=== PATIENT | female | born 1940 | race Caucasian/White ===

== ENCOUNTER 2017-03-14 07:04 | Inpatient (IN) | payer MEDICARE, BC ==
--- NOTE | 2017-03-02 14:02 | HP ---
PREOPERATIVE HISTORY AND PHYSICAL: DATE OF OFFICE VISIT: 03/01/17 DATE OF SURGERY: 03/14/17 ATTENDING SURGEON: Kayli Leal MD * (DICTATED BY LYNNE VALDERRAMA) PROCEDURE: Left total knee replacement. CHIEF COMPLAINT: Left hip pain. HISTORY OF PRESENT ILLNESS: Dimitrios is a 76-year-old female who presents to the clinic for left knee pain due to severe endstage osteoarthritis. She has failed conservative measures and has therefore agreed to undergo left total knee replacement with Dr. Leal on 03/14/17. PAST MEDICAL HISTORY: Hypercholesterolemia, osteoarthritis, hypothyroidism, degenerative disk disease in her back, scoliosis, anxiety, and tobacco use. PAST SURGICAL HISTORY: Left knee arthroscopy, nephrolithiasis. Patient denies prior complications with anesthesia. MEDICATIONS: 1. Gemfibrozil 600 mg 1 by mouth daily. 2. Levothyroxine sodium 112 mcg 1 by mouth daily. 3. Sertraline HCl 100 mg 1 by mouth daily. 4. Atorvastatin calcium 20 mg 1 by mouth daily. 5. Gabapentin 300 mg 1 by mouth daily. ALLERGIES: DEMEROL and CECLOR. The patient also states that she has an unknown METAL allergy and reaction to JEWELRY. FAMILY HISTORY: Positive for diabetes, hypertension, and CVA. SOCIAL HISTORY: Patient lives with her . She is a current smoker, smokes about half a pack per day, she has for 50 years. She denies alcohol use. She is normally an independent ambulator. REVIEW OF SYSTEMS: A 14-point review of systems was reviewed with the patient, positive for fever, chills, recently due to a cold, however it is improving. Denies chest pain, shortness of breath, denies history of bleeding disorders. Denies history of DVT or PE. PHYSICAL EXAMINATION GENERAL: Well-developed, well-nourished 76-year-old female, in no acute distress. Alert and oriented x3. Appropriate mood and affect. VITAL SIGNS: Height 59.75, weight 151, blood pressure 124/70, respiratory rate 14, temperature 98.0, and BMI 29.7. HEENT: Normocephalic, atraumatic. PERRLA. Throat clear. NECK: Supple. PULMONARY: Lungs are clear to auscultation bilaterally. No wheezing, rhonchi, or rales. CARDIO: Regular rate and rhythm. S1 and S2. No murmurs, gallops, or rubs. No edema. ABDOMEN: Positive bowel sounds. Soft, nontender. NEURO: Alert and oriented x3. Cranial nerves grossly intact. Sensation is intact to light touch. MUSCULOSKELETAL: Left lower extremity, the skin is intact. No abrasions or open wounds. Moderate effusion, tenderness over the medial joint. Range of motion 10 to 120, stable with varus and valgus stress. Varus deformity of knees. Patellofemoral crepitus with range of motion. No palpable masses or lymph nodes. +5/5 strength in dorsiflexion and plantarflexion. No hyperreflexia. +2 DP pulse. Sensation is intact to light touch distally. DIAGNOSTIC STUDIES: Multi view x-rays revealed left knee endstage osteoarthritis. Varus knee with medial joint space [id number] contact and severe osteoarthritis in the patellofemoral compartment as well. IMPRESSION: Left knee endstage osteoarthritis. PLAN: The patient is scheduled to undergo a left total knee replacement with Dr. Leal on 03/14/17. Patient has unknown allergy to certain metal jewelry therefore Oxinium will be used for surgery. She will return in about 10 to 14 days postop for followup and suture removal. Percocet was sent to the patient' s pharmacy for postop management and Coumadin for DVT prophylaxis and Colace for constipation prevention. LYNNE VALDERRAMA [id number]/[facility] #: [id number] [facility] MEDICAL CENTERHumberto
[~2017-03-14 07:04] MED LIST: Buffered Lidocaine 0.9% SYRIN* 5 ML/SYR SYRINGE INTRADERM ONE; Famotidine IV* 10 MG/ML 2 ML (20 mg) IV ONE
[2017-03-14] MEDS ORDERED: KETAMINE HCL* 50 MG/ML 10 ML VIAL ONE (07:07)
[2017-03-14] MEDS ORDERED: Propofol* 10 MG/ML 20 ML BTL IV PUSH ONE (07:07)
[2017-03-14] MEDS ORDERED: fentaNYL* 50 MCG/ML 2 ML VIAL (100 MCG VIAL) ONE ×3 (07:07→13:22)
[2017-03-14] MEDS ORDERED: Ketorolac INJ* 30 MG/ML 1 ML VIAL ONE (07:07)
[2017-03-14] MEDS ORDERED: Midazolam* 1 MG/ML 5 ML VIAL (5 MG) ONE (07:07)
[2017-03-14] MEDS ORDERED: Ondansetron INJ* 2 MG/ML VIAL ONE (07:07)
[2017-03-14] MEDS ORDERED: Dexamethasone IV* 4 MG/ML 1 ML (4 MG) ONE (07:07)
[2017-03-14] MEDS ORDERED: Lidocaine 2% PF * 5 ML VIAL ONE ×2 (07:07→08:29)
[2017-03-14] MEDS ORDERED: Famotidine IV* 10 MG/ML 2 ML (20 mg) ONE (07:13)
[2017-03-14] MEDS ORDERED: ceFAZolin 2 GM PREMIX (*) 2 GM/50 ML BAG IVPB ONE (07:13)
[2017-03-14] MEDS ORDERED: ROPIVACAINE 5 MG/ML 30 ML BTL (0.5%) ONE (08:29)
[2017-03-14] MEDS ORDERED: Polyethylene Glycol 3350* 17 GM PACKET PO PRN (09:35)
[2017-03-14] MEDS ORDERED: Morphine INJ* 2 MG/ML 1 ML SYRINGE (TWO MG - NEW SYRINGE VERSION) IV PRN (09:35)
[2017-03-14] MEDS ORDERED: Ondansetron TAB* 4 MG PO PRN (09:35)
[2017-03-14] MEDS ORDERED: Bisacodyl SUPP* 10 MG SUPP PR PRN (09:35)
[2017-03-14] MEDS ORDERED: Magnesium Hydroxide LIQ* 30 ML UDC PO PRN (09:35)
[2017-03-14] MEDS ORDERED: oxyCODONE TAB* 5 MG TAB PO PRN (09:35)
[2017-03-14] MEDS ORDERED: Ondansetron INJ* 2 MG/ML VIAL IV PRN ×2 (09:35→10:56)
[2017-03-14] MEDS ORDERED: diPHENhydraMINE IV* 50 MG/ML 1 ml VIAL (BENADRYL) IV PRN (09:35)
[2017-03-14] MEDS ORDERED: DRISTAN BOTH NARES (09:38)
[2017-03-14] MEDS ORDERED: Phenylephrine IV* 40 MCG/ML 10 ML SYRINGE ONE (10:02)
[2017-03-14] MEDS ORDERED: DiMENhydriNATE IV* 50 MG/ML VIAL IV PUSH PRN (10:56)
[2017-03-14] MEDS ORDERED: Levalbuterol 0.63MG/3ML NEB* UNIT OF USE INH PRN (10:56)
[2017-03-14] MEDS ORDERED: HYDROmorphone INJ* 1 MG/ML CARPUJECT SYRINGE IV PRN (10:56)
[2017-03-14] MEDS ORDERED: fentaNYL* 50 MCG/ML 2 ML VIAL (100 MCG VIAL) IV PRN (10:56)
[2017-03-14] MEDS ORDERED: HYDROmorphone INJ* 1 MG/ML CARPUJECT SYRINGE ONE (10:58)
[2017-03-14] MEDS ORDERED: Bupivacaine 0.5% SDV PF* 30 ML VIAL ONE (11:12)
--- NOTE | 2017-03-14 12:53 | RAD ---
CPT II Codes: 6045F INDICATION: Fluoroscopic imaging during left knee plasty TECHNIQUE: Intraoperative fluoroscopy was provided during left knee arthroplasty. FINDINGS: 2 spot films depict a left knee prosthesis in anatomic alignment.. Fluoroscopy time: 38 seconds IMPRESSION: As above.
--- NOTE | 2017-03-14 13:07 | RAD ---
INDICATION: Left knee arthroplasty COMPARISON: Fluoroscopic imaging from the same date TECHNIQUE: 2 view radiograph of the left knee was acquired at 1236 hours. FINDINGS: There has been interval placement of an anatomically aligned left knee prosthesis. A surgical drain is noted in the position. The bones are otherwise intact and appropriately aligned. IMPRESSION: Anatomically aligned left knee prosthesis.
[2017-03-14 14:23] LABS: Urine Bacteria Absent (Absent); Urine Bilirubin Negative (Negative); Urine Glucose Negative (Negative); Urine Nitrite Negative (Negative)
[2017-03-14] MEDS: Carboxymethylcellulos 1% OPTH* 1 DROP AMP BOTH EYES SCH ×2 (14:51→20:12)
[2017-03-14] MEDS ORDERED: Clindamycin 600 MG IVPREMIX(* 600 MG/50 ML SDV IV SCH (16:00)
[2017-03-14] MEDS ORDERED: Warfarin TAB(*) 6 MG PO ONE (17:00)
[2017-03-14] MEDS: Sertraline* 100 MG TAB PO SCH (17:02)
[2017-03-14] MEDS: Clindamycin 600 MG IVPREMIX(* 600 MG/50 ML SDV IV SCH (17:02)
[2017-03-14] MEDS: Levothyroxine TAB* 112 MCG TAB PO SCH (17:02)
[2017-03-14] MEDS: Gemfibrozil TAB* 600 MG PO SCH (17:02)
[2017-03-14] MEDS: oxyCODONE/Acetamin 5/325 MG* TAB PO PRN (17:02)
[2017-03-14] MEDS: Atorvastatin* 20 MG TAB PO SCH (17:02)
--- NOTE | 2017-03-14 19:15 | CONS ---
CC: Dr. Kayli Leal * CONSULTATION REPORT: DATE OF CONSULT: 03/14/17 PRIMARY CARE PROVIDER: Out of area. REQUESTING PHYSICIAN: Dr. Kayli Leal. ATTENDING PHYSICIAN: Dr. Sylwia Yost (report dictated by Rashmi Lawrence NP). REASON FOR CONSULT: Medical co-management. HISTORY OF PRESENT ILLNESS: Ms. Cr is 76-year-old female, who underwent an elective left total knee replacement with Dr. Leal today on 03/14/17. Prior to the patient, the patient states she was in a fairly good state of health. Currently, the patient was seen postoperatively. She reports she is sleepy and she denies pain or shortness of breath at this time. The hospitalists were asked to assist with medical co-management. PAST MEDICAL HISTORY: Hypercholesterolemia, osteoarthritis, hypothyroidism, degenerative disk disease, scoliosis, anxiety, current tobacco abuse. PAST SURGICAL HISTORY: Left knee arthroscopy, nephrolithiasis. HOME MEDICATIONS: 1. Gemfibrozil 600 mg oral daily. 2. Synthroid 112 mcg oral daily. 3. Zoloft 100 mg oral daily. 4. Atorvastatin 20 mg oral daily. 5. Neurontin 300 mg oral daily. ALLERGIES: DEMEROL and CECLOR. Also, UNKNOWN METAL allergy and reaction to JEWELRY. FAMILY HISTORY: Positive for diabetes, hypertension, CVA. SOCIAL HISTORY: The patient is a current smoker, smokes about a half pack a day , and has been doing so for 50 years. She denies any alcohol use. She lives with her , who is the surrogate decision maker in the event the patient cannot make decisions for herself. REVIEW OF SYSTEMS: I performed a 14-point review of systems; all the pertinent positives and negatives are mentioned in the history of present illness. The remaining review of systems is negative. PHYSICAL EXAM: Vital Signs: Temperature 97.2, heart rate 96, respiratory rate 20, oxygen saturation 94% on 4 L, blood pressure 125/75. Appearance: The patient is alert, appeared to be in no apparent distress. Head, Eyes, Ears, Nose, and Throat: Normocephalic/atraumatic. Pupils were equal and reactive to light. Extraocular movements were intact. Neck: Supple. There was no lymphadenopathy noted. Cardiac: S1, S2 were crisp. There were no murmurs, rubs , or gallops heard. Respiratory: There was no accessory muscle use. Lungs are clear to auscultation. Abdomen was soft, nontender. Hypoactive bowel sounds. Extremities: There was no lower extremity edema. DP and PT pulses were 2+ and symmetric. Skin: There were no rashes or abnormalities seen. The patient's left knee dressing intact. Incision was not examined. Neuro: The patient is alert and oriented to self and place only as she is waking up from anesthesia. She moves all extremities. Cranial nerves were grossly intact. LABORATORY DATA: Preoperative from 03/01/17, sodium 141, potassium 4, chloride 107, CO2 28, BUN 21, creatinine 1.1, glucose 85. Liver function tests within normal limits. White blood cell count 8.6, hemoglobin 12.1, hematocrit 38, platelet count 249. INR is 0.88, PTT 28.9. Urinalysis was positive preoperatively. IMPRESSION: This is a 76-year-old female, who underwent an elective left total knee replacement with Dr. Leal today. Hospitalists were asked to assist with medical co-management. ASSESSMENT AND PLAN: 1. Postop day 0. Left total knee replacement management would be per Orthopedic Surgery. The patient will have oxycodone for pain control. The patient will have daily hemoglobin and hematocrit checked. Haji will be discontinued on postop day 2. The patient will have physical therapy and occupational therapy. 2. Positive urinalysis. The patient had a positive urinalysis during her preop visit. I will recheck urinalysis today and withhold antibiotics until that is resulted. The patient does not look infected at this point. 3. Hypothyroidism. Synthroid will continue. 4. Hyperlipidemia. Gemfibrozil and atorvastatin will continue. 5. Anxiety. Zoloft will continue. 6. DVT prophylaxis. Will be per Orthopedic Surgery with Lovenox and warfarin. 7. Code status. Full. 8. Fluids, electrolytes, and nutrition. The patient will have clears, to be advanced when she is more alert. TIME SPENT: Time for this consultation was 50 minutes, and 25 minutes was spent with the patient reviewing past medical history, medications, and events leading up to her elective knee surgery. Reviewed by RASHMI LAWRENCE NP 03/15/2017 1130 [id number]/[facility] #: [id number] MICHELA
[2017-03-14] MEDS: Gabapentin CAP(*) 300 MG PO SCH (20:09)
[2017-03-14] MEDS: Docusate CAP* 100 MG PO SCH (20:09)
[2017-03-15] MEDS: Clindamycin 600 MG IVPREMIX(* 600 MG/50 ML SDV IV SCH ×2 (02:16→10:59)
[2017-03-15] MEDS: oxyCODONE/Acetamin 5/325 MG* TAB PO PRN ×4 (03:37→23:19)
[2017-03-15 05:53] LABS: Hematocrit 27 % (35-47); Hemoglobin 8.8 g/dl (12.0-16.0)
[2017-03-15 06:12] LABS: Calcium 8.1 mg/dL (8.6-10.3); EGFR African American 61.8 (>60)
--- NOTE | 2017-03-15 08:50 | OP ---
DATE OF OPERATION: 03/14/17 - ROOM #343 DATE OF : 44 ATTENDING SURGEON: Kayli Leal MD. INDEPENDENT LIVING INSTRUCTOR: LYNNE Hogan. Ms. Hernandez did help throughout the procedure with preparation of the leg, wound retraction, manipulation of the knee, and wound closure. ANESTHESIOLOGIST: Dr. Enoc Castillo. ANESTHESIA: General with adductor nerve block. PRE-OP DIAGNOSIS: Severe end-stage osteoarthritis of the left knee joint. POST-OP DIAGNOSIS: Severe end-stage osteoarthritis of the left knee joint. OPERATIVE PROCEDURE: Left total knee arthroplasty. TOURNIQUET TIME: 48 minutes. COMPLICATIONS: None. ESTIMATED BLOOD LOSS: 200 mL. SPECIMENS: Bone and cartilage from the left knee joint sent to Pathology. HARDWARE USED: Cemented [employer] total knee arthroplasty hardware. Two packages of Simplex bone cement. For the femur a size 4 left Oxinium femoral component, posterior stabilized; for the tibia, a size 3 left tibial baseplate, Lotus 2; for the insert a 9-mm posterior stabilized articular insert, size 3/4; and for the patella a 32 mm 3-peg all poly 7.5 thickness patella. BRIEF HISTORY/INDICATIONS: Ms. Cr is a 76-year-old female with years of increasing severe left knee pain. She failed conservative treatment with antiinflammatories, pain medications, intraarticular injection, and physical therapy. Her radiographs showed [id number] severe arthritis. She elected to undergo a left total knee arthroplasty due to continued pain and decreased quality of life. Informed consent was obtained from the patient. She understood the risk of surgery included, but were not limited to bleeding, infection, damage to nearby structures, continued pain, need for further surgery , intraoperative fracture, nerve palsy, hardware failure or loosening, knee stiffness, loss of motion, stroke, heart attack, blood clot, and . She wished to proceed. INTRAOPERATIVE FINDINGS: Intraoperatively, Ms. Cr was found to have severe arthritis in a tricompartmental fashion. She had full-thickness loss of cartilage in all of the compartments. She had extensive osteophyte formation around the entire femur and tibia. DESCRIPTION OF PROCEDURE: Ms. Cr was identified in the preanesthesia unit. Her left lower extremity was marked as the correct operative site. Informed consent was signed and placed in the chart. The patient was taken to the operating room and placed under general anesthesia with an adductor nerve block. A Haji catheter was placed. A tourniquet was placed on the left thigh. Left lower extremity was prepped and draped in the usual sterile fashion. Preop time-out was made to correctly identify the patient side and site. Appropriate perioperative antibiotics were given within 1 hour of incision. Tourniquet was inflated until the tourniquet time for this procedure was 48 minutes. A 12 cm midline incision was made with a 10-blade. This was carried down to the extensor mechanism. A new 10-blade was used to make a standard medial parapatellar arthrotomy. The patella was subluxed laterally. Electrocautery was used to subperiosteally elevate soft tissue off the superomedial tibia to the mid sagittal plane. Any osteophytes were carefully removed. The knee was flexed up. The anterior horn of the lateral meniscus and the ACL were sharply released. A drill was used to enter the distal femur. Intramedullary distal femoral cutting guide was pinned on the distal femur. 9 mm of distal femoral bone was carefully removed using an oscillating saw. External rotation guide was pinned on the distal femur and the distal femur was sized to a size 4. Size 4 multi-cutting jig was pinned on the distal femur. Oscillating saw was used to make the appropriate 4 chamfer cuts. The PCL was completely released. The tibia was subluxed anteriorly. Extramedullary tibial cutting guide was pinned on the proximal tibia. Oscillating saw was used to make the appropriate proximal tibial cut. The bone was carefully removed. The knee was brought out into full extension. Spacer block had good fit with the knee in full extension. There was excellent medial and lateral ligamentous balancing. Flexion and extension gaps were well balanced. The knee was flexed up. Lamina chemist inorganic was placed both medially and laterally. Any remaining meniscus was carefully removed using electrocautery. Tibial tray and drop jayden once again confirmed a satisfactory proximal tibial cut. A size 4 left femoral trial was impacted on to the distal femur and had good fit. The box for the posterior stabilized implant was prepared using a reamer and box-cut osteotome. A size 3 tibial tray trial with a 9 mm insert trial was placed. The knee was taken through range of motion. The knee had full extension to 130 degrees of flexion, satisfactory patellofemoral tracking. The patella was everted. 7-mm of patellar bone and cartilage were carefully removed from the patella. The patella was sized to a size 32. The 3 peg holes were drilled through the size 32 guide. A 7.5 thickness size 32 patellar trial was placed and the knee was taken through range of motion. There were satisfactory patellofemoral tracking. All trials were carefully removed. The tibia was subluxed anteriorly and sized to a size 3. Proximal tibia was prepared using a size 3 keel punch. All bony cut surfaces were copiously irrigated with sterile saline and dried. The final implants were cemented into place starting with the tibia, followed by the femur , and lastly the patella. A 9-mm insert trial was placed while the knee was brought into full extension. The tourniquet was turned down at 48 minutes. The knee was copiously irrigated with sterile saline. Electrocautery was used to obtain meticulous hemostasis. Once the cement had fully cured, the insert trial was removed. Any excess cement was carefully removed from around the capsule and hardware. Final insert chosen was a 9 mm posterior stabilized articular insert size 3/4. This was locked into position on the tibial tray without difficulty. Stability of the insert was checked and rechecked and noted to be stable. The knee was once again copiously irrigated with sterile saline. The extensor mechanism was closed over a medium Hemovac drain using interrupted #1 Vicryl. The rest of the incision was closed in a layered fashion using 0 and 2-0 Vicryl. Skin was closed using running 3-0 nylon suture. Sterile Xeroform, 4x4s , and Webril were used to cover the incision. Anders wrap and cold pack were placed over this. The patient's anesthesia was reversed without difficulty. She was taken to the PACU in stable condition. Intended weight bearing will be weight bearing as tolerated. Intended DVT prophylaxis will be Coumadin with a Lovenox bridge. [id number]/[facility] #: [id number] [facility] HOSPITALHumberto
--- NOTE | 2017-03-15 08:53 | PN ---
Progress Note - Progress Note Date of Service: 03/15/17 SOAP: Subjective: []Patient seen out of bed in chair. She has no questions or complaints. Pain is well controlled. Her BP has been low, last measured at 88/46 for which she is receiving a 500 ml bolus of LR. She denies dizziness, headache, chest pain, shortness of breath, nausea or leg numbness. Adithya d/c'ed this AM and patient is urinating on her own, no BM yet. Objective: [] Vital Signs Temp 98.0 F 03/15/17 07:16 Pulse 75 03/15/17 08:27 Resp 20 03/15/17 07:40 BP 87/54 03/15/17 08:27 Pulse Ox 94 03/15/17 08:27 Intake & Output 03/14/17 03/15/17 03/15/17 18:59 06:59 18:59 Intake Total 3510 1835 Output Total 300 1050 Balance 3210 785 Weight 149 lb Intake: IV Fluids 2950 1075 ABX - CLINDAMYCIN 110 LR 2900 965 NS 50ML, Cefazolin 2G 50 Oral 560 760 Output: Haji 300 1050 Laboratory Last Values Hgb 8.8 g/dl (12.0-16.0) L 03/15/17 05:25 Hct 27 % (35-47) L 03/15/17 05:25 INR (Anticoag Therapy) 0.97 (0.89-1.11) 03/15/17 05:25 Sodium 137 mmol/L (133-145) 03/15/17 05:25 Potassium 4.0 mmol/L (3.5-5.0) 03/15/17 05:25 Chloride 107 mmol/L (101-111) 03/15/17 05:25 Carbon Dioxide 25 mmol/L (22-32) 03/15/17 05:25 Anion Gap 5 mmol/L (2-11) 03/15/17 05:25 BUN 20 mg/dL (6-24) 03/15/17 05:25 Creatinine 1.11 mg/dL (0.51-0.95) H 03/15/17 05:25 Est GFR ( Amer) 61.8 (>60) 03/15/17 05:25 Est GFR (Non-Af Amer) 48.0 (>60) 03/15/17 05:25 BUN/Creatinine Ratio 18.0 (8-20) 03/15/17 05:25 Glucose 100 mg/dL (70-100) 03/15/17 05:25 Calcium 8.1 mg/dL (8.6-10.3) L 03/15/17 05:25 Urine Color Yellow 03/14/17 14:00 Urine Appearance Cloudy 03/14/17 14:00 Urine pH 5.0 (5-9) 03/14/17 14:00 Ur Specific Vernon 1.017 (1.010-1.030) 03/14/17 14:00 Urine Protein 1+(30 mg/dl) (Negative) H 03/14/17 14:00 Urine Ketones Negative (Negative) 03/14/17 14:00 Urine Blood 1+ (Negative) H 03/14/17 14:00 Urine Nitrate Negative (Negative) 03/14/17 14:00 Urine Bilirubin Negative (Negative) 03/14/17 14:00 Urine Urobilinogen Negative (Negative) 03/14/17 14:00 Ur Leukocyte Esterase 3+ (Negative) H 03/14/17 14:00 Urine WBC (Auto) 3+(>20/hpf) (Absent) H 03/14/17 14:00 Urine RBC (Auto) 1+(3-5/hpf) (Absent) H 03/14/17 14:00 Ur Squamous Epith Cells Present (Absent) H 03/14/17 14:00 Urine Bacteria Absent (Absent) 03/14/17 14:00 Hyaline Casts Present (Absent) H 03/14/17 14:00 Urine Glucose Negative (Negative) 03/14/17 14:00 General: Well appearing, calm and cooperative. No acute distress LLE: Dressing is clean, dry and intact. Dr. Leal pulled hemovac this morning without complication. Bilateral lower extremities: Calves supple and nontender without erythema, edema or palpable cords. Sensation intact distally. Capillary refill brisk distally. DP/PT 2+ and symmetric. DF/PF intact. Assessment: []POD1 s/p left total hip arthroplasty on 03/14/17, Dr Leal Plan: []WBAT PT/OT Lovenox, Coumadin 6 mg Augmentin x 7 days per hospitalist for UTI Continued pain control Hospitalists signed off. Will monitor BP. If bolus does not normalize with LR bolus will put in a new consult
[2017-03-15] MEDS: Enoxaparin(*) 30 MG/0.3 ML SYR SUBCUT SCH (10:43)
[2017-03-15] MEDS: Carboxymethylcellulos 1% OPTH* 1 DROP AMP BOTH EYES SCH ×3 (10:44→20:31)
[2017-03-15] MEDS: Docusate CAP* 100 MG PO SCH ×2 (10:45→20:30)
[2017-03-15] MEDS: Gabapentin CAP(*) 300 MG PO SCH ×2 (10:45→20:30)
--- NOTE | 2017-03-15 11:17 | PN ---
Hospitalist Progress Note Brief Hospitalist Follow-up UA positive from 03/13/2017. Patient received a 3 day course of Cipro for +UA from 03/01/2017. Will tx with 7 day course of Augmentin. Pt has allergy to cephalosporins and Quinolones will interact with warfarin. D/w Ortho. Will sign off for now. Please call with further questions or concerns.
[2017-03-15] MEDS: Amoxicillin/Clavulanate TAB* 875 MG PO SCH ×2 (12:21→20:29)
[2017-03-15] MEDS: Acetaminophen TAB* 325 MG PO PRN ×2 (12:58→17:08)
[2017-03-15] MEDS ORDERED: Warfarin TAB(*) 6 MG PO ONE (17:00)
[2017-03-15] MEDS: Gemfibrozil TAB* 600 MG PO SCH (17:08)
[2017-03-15] MEDS: Atorvastatin* 20 MG TAB PO SCH (17:08)
[2017-03-15] MEDS: Sertraline* 100 MG TAB PO SCH (17:08)
[2017-03-15] MEDS: Levothyroxine TAB* 112 MCG TAB PO SCH (17:16)
[2017-03-16] MEDS: oxyCODONE/Acetamin 5/325 MG* TAB PO PRN ×5 (03:12→21:53)
[2017-03-16 06:19] LABS: Hematocrit 26 % (35-47); Hemoglobin 8.8 g/dl (12.0-16.0)
[2017-03-16] MEDS: Acetaminophen TAB* 325 MG PO PRN (06:59)
--- NOTE | 2017-03-16 07:30 | PN ---
Progress Note - Progress Note Date of Service: 03/16/17 SOAP: Subjective: patient resting comfortably with no complaints, pain controlled with po meds Objective: Vital Signs Temp Pulse Resp BP Pulse Ox 98.2 F 72 16 138/67 96 03/16/17 03:12 03/16/17 03:12 03/16/17 05:40 03/16/17 03:12 03/16/17 03:33 Laboratory Last Values Hgb 8.8 g/dl (12.0-16.0) L 03/16/17 05:54 Hct 26 % (35-47) L 03/16/17 05:54 INR (Anticoag Therapy) 1.77 (0.89-1.11) H 03/16/17 05:54 Sodium 137 mmol/L (133-145) 03/15/17 05:25 Potassium 4.0 mmol/L (3.5-5.0) 03/15/17 05:25 Chloride 107 mmol/L (101-111) 03/15/17 05:25 Carbon Dioxide 25 mmol/L (22-32) 03/15/17 05:25 Anion Gap 5 mmol/L (2-11) 03/15/17 05:25 BUN 20 mg/dL (6-24) 03/15/17 05:25 Creatinine 1.11 mg/dL (0.51-0.95) H 03/15/17 05:25 Est GFR ( Amer) 61.8 (>60) 03/15/17 05:25 Est GFR (Non-Af Amer) 48.0 (>60) 03/15/17 05:25 BUN/Creatinine Ratio 18.0 (8-20) 03/15/17 05:25 Glucose 100 mg/dL (70-100) 03/15/17 05:25 Calcium 8.1 mg/dL (8.6-10.3) L 03/15/17 05:25 Urine Color Yellow 03/14/17 14:00 Urine Appearance Cloudy 03/14/17 14:00 Urine pH 5.0 (5-9) 03/14/17 14:00 Ur Specific Cameron 1.017 (1.010-1.030) 03/14/17 14:00 Urine Protein 1+(30 mg/dl) (Negative) H 03/14/17 14:00 Urine Ketones Negative (Negative) 03/14/17 14:00 Urine Blood 1+ (Negative) H 03/14/17 14:00 Urine Nitrate Negative (Negative) 03/14/17 14:00 Urine Bilirubin Negative (Negative) 03/14/17 14:00 Urine Urobilinogen Negative (Negative) 03/14/17 14:00 Ur Leukocyte Esterase 3+ (Negative) H 03/14/17 14:00 Urine WBC (Auto) 3+(>20/hpf) (Absent) H 03/14/17 14:00 Urine RBC (Auto) 1+(3-5/hpf) (Absent) H 03/14/17 14:00 Ur Squamous Epith Cells Present (Absent) H 03/14/17 14:00 Urine Bacteria Absent (Absent) 03/14/17 14:00 Hyaline Casts Present (Absent) H 03/14/17 14:00 Urine Glucose Negative (Negative) 03/14/17 14:00 incision: c/d; dressing changed PE: NVI Assessment: s/p left BENJIE; POD#2 Plan: 1) PT/OT- WBAT 2) Augmentin x 7 days for UTI 3) Lovenox/ coumadin for DVT prophylaxis 4) Possible home today
[2017-03-16] MEDS: Carboxymethylcellulos 1% OPTH* 1 DROP AMP BOTH EYES SCH ×3 (08:35→21:54)
[2017-03-16] MEDS: Docusate CAP* 100 MG PO SCH ×2 (08:36→21:54)
[2017-03-16] MEDS: Amoxicillin/Clavulanate TAB* 875 MG PO SCH ×2 (09:12→21:53)
[2017-03-16] MEDS: Gabapentin CAP(*) 300 MG PO SCH ×2 (09:12→21:53)
[2017-03-16] MEDS: Enoxaparin(*) 30 MG/0.3 ML SYR SUBCUT SCH (09:13)
[2017-03-16] MEDS ORDERED: Warfarin TAB(*) 4 MG PO ONE (17:00)
[2017-03-16] MEDS: Gemfibrozil TAB* 600 MG PO SCH (17:33)
[2017-03-16] MEDS: Sertraline* 100 MG TAB PO SCH (17:33)
[2017-03-16] MEDS: Atorvastatin* 20 MG TAB PO SCH (17:33)
[2017-03-16] MEDS: Levothyroxine TAB* 112 MCG TAB PO SCH (17:33)
[2017-03-17] MEDS: oxyCODONE/Acetamin 5/325 MG* TAB PO PRN ×4 (02:00→14:25)
[2017-03-17 05:40] LABS: Hematocrit 27 % (35-47); Hemoglobin 9.1 g/dl (12.0-16.0)
[2017-03-17] MEDS: Carboxymethylcellulos 1% OPTH* 1 DROP AMP BOTH EYES SCH ×2 (08:48→13:26)
[2017-03-17] MEDS: Amoxicillin/Clavulanate TAB* 875 MG PO SCH (08:49)
[2017-03-17] MEDS: Gabapentin CAP(*) 300 MG PO SCH (08:49)
[2017-03-17] MEDS: Enoxaparin(*) 30 MG/0.3 ML SYR SUBCUT SCH (08:49)
[2017-03-17] MEDS: Docusate CAP* 100 MG PO SCH (08:49)
--- NOTE | 2017-03-17 11:52 | PN ---
Progress Note - Progress Note Date of Service: 03/17/17 SOAP: Subjective: 76 y/o female s/p L TKA 03/[address] Leal. Patient admits to fatigue, resting poorly. + multiple episodes of loose stools. working well with PT, cleared for home. VSS afebrile overnight Objective: General- well appearing, NAD, AO, resting comfortably in bed MSK- Dressing removed, new dressing placed, incision C/D/I, moderate swelling, no drainage, sutures intact, PT 2+ b/l, + DF/PF, neg homans b/l. Vital Signs Temp 97.6 F 03/17/17 11:41 Pulse 66 03/17/17 11:41 Resp 16 03/17/17 11:41 BP 113/61 03/17/17 11:41 Pulse Ox 90 03/17/17 11:41 Intake & Output 03/16/17 03/17/17 03/17/17 18:59 06:59 18:59 Intake Total 2713 1280 345 Output Total 2360 1850 650 Balance 353 -570 -305 Intake: IV Fluids 908 LR 908 Oral 1805 1280 345 Output: Urine 2350 1850 650 Liquid Stool 10 Other: Estimated Void Medium Date of Last Bowel 1 Movement # Bowel Movements 1 Estimated Stool Amount Small # Voids 3 Assessment: Stable 76 y/o female s/p L TKA 03/[address] Leal. Plan: - DVT prophly- INR suprather- 2.9, hold coumadin, D/C lovenox - Continue PT - UTI- probable contaminate, ABX changed from augmentin to macrobid for 5 days - COntinue current pain regimen - Follow up with Dr. Elvis hurstsergio 2 weeks Laboratory Results - last 24 hr 03/17/17 03/17/17 05:03 05:03 Hgb 9.1 L Hct 27 L INR (Anticoag Therapy) 2.93 H Active Medications Generic Name Dose Route Start Last Admin Trade Name Freq PRN Reason Stop Dose Admin Acetaminophen 650 mg 03/14/17 09:35 03/16/17 06:59 Tylenol Tab* PO 650 mg Q4H PRN Administration PAIN OR TEMPERATURE Amoxicillin/Clavulanate Potassium 875 mg 03/15/17 12:00 03/17/17 08:49 Augmentin Tab* PO 875 mg BID TANA Administration Atorvastatin Calcium 20 mg 03/14/17 18:00 03/16/17 17:33 Lipitor* PO 20 mg QPM TANA Administration Bisacodyl 10 mg 03/14/17 09:35 Dulcolax Supp* UT DAILY PRN constipation Carboxymethylcellulose Sodium 1 drop 03/14/17 14:00 03/17/17 08:48 Celluvisc 1% Opth* BOTH EYES 1 drop TID TANA Administration Diphenhydramine HCl 12.5 mg 03/14/17 09:35 Benadryl Iv* IV Q6H PRN PRURITIS Docusate Sodium 100 mg 03/14/17 21:00 03/17/17 08:49 Colace Cap* PO 100 mg BID TANA Administration Enoxaparin Sodium 30 mg 03/15/17 10:00 03/17/17 08:49 Lovenox(*) SUBCUT 30 mg Q24H TANA Administration Gabapentin 300 mg 03/14/17 21:00 03/17/17 08:49 Neurontin Cap(*) PO 300 mg BID TNAA Administration Gemfibrozil 600 mg 03/14/17 18:00 03/16/17 17:33 Lopid Tab* PO 600 mg QPM TANA Administration Lactulose 30 ml 03/14/17 09:35 Lactulose* PO Q6H PRN constipation Levothyroxine Sodium 112 mcg 03/14/17 18:00 03/16/17 17:33 Synthroid Tab* PO 112 mcg QPM TANA Administration Magnesium Hydroxide 30 ml 03/14/17 09:35 Milk Of Magnesia Liq* PO Q6H PRN constipation Morphine Sulfate 2 mg 03/14/17 09:35 Morphine Inj (Syringe)* IV Q2H PRN PAIN (Dristan Nasal Aurora 1 spray 03/14/17 09:38 Prn 0 Aurora) BOTH NARES DAILY PRN Allergy Symptoms Ondansetron HCl 4 mg 03/14/17 09:35 Zofran Inj* IV Q6H PRN nausea Ondansetron HCl 4 mg 03/14/17 09:35 Zofran Tab* PO Q6H PRN NAUSEA Oxycodone HCl 10 mg 03/14/17 09:35 Roxycodone Tab* PO Q4H PRN SEVERE PAIN Oxycodone/Acetaminophen 1 tab 03/14/17 09:35 03/16/17 09:12 Percocet 5/325 Tab* PO 1 tab Q4H PRN Administration PAIN Oxycodone/Acetaminophen 2 tab 03/14/17 09:35 03/17/17 10:28 Percocet 5/325 Tab* PO 2 tab Q4H PRN Administration PAIN Pharmacy Profile Note 1 note 03/14/17 17:00 03/16/17 17:33 Coumadin Daily Reminder* FOLLOW UP 1 note 1700 TANA Administration Polyethylene Glycol/Electrolytes 17 gm 03/14/17 09:35 Miralax* PO DAILY PRN Constipation Sertraline HCl 100 mg 03/14/17 18:00 03/16/17 17:33 Zoloft* PO 100 mg QPM TANA Administration
[2017-03-17 12:02] VITALS: BP 113/61
--- NOTE | 2017-03-18 05:45 | DS ---
DISCHARGE SUMMARY: DATE OF ADMISSION: 03/14/17 DATE OF DISCHARGE: 03/17/17 ATTENDING PHYSICIAN: Kayli Leal MD * (DICTATED BY LYNNE PAPPAS) CHIEF COMPLAINT: 1. Left knee pain. 2. Elevated cholesterol. 3. Generalized osteoarthritis. 4. Hypothyroidism. 5. Degenerative disk disease. 6. Scoliosis. 7. Anxiety. 8. Tobacco use. DISCHARGE DIAGNOSES: 1. Status post left total knee replacement, uncomplicated. 2. Hypercholesterolemia. 3. Generalized arthritis. 4. Hypothyroidism. 5. Degenerative disk disease. 6. Scoliosis. 7. Anxiety. 8. History of tobacco use. PROCEDURE: Left total knee arthroplasty. CONSULTATIONS: 1. Physical Therapy. 2. Occupational Therapy. 3. Medicine. BRIEF HISTORY: Ms. Cr is a very pleasant 76-year-old female with severe endstage degenerative osteoarthritis of the left knee who failed conservative treatment and elected to undergo a left total knee arthroplasty on 03/14/[address] Kayli Leal. HOSPITAL COURSE: Ms. Cr was admitted to [facility] on 03/14/17 when she underwent a left total knee arthroplasty which was uncomplicated. Postoperatively, she recovered on the surgical short-stay unit. By postoperative day 2, her Haji was removed and she was voiding on her own without difficulty. She has been started on regular diet and her pain was controlled with p.o. pain medications. She was restarted on her home medications and labs and vital signs remained stable. She was able to bear weight as tolerated on the left lower extremity. She advanced appropriately with physical therapy and occupational therapy. Her DVT prophylaxis is managed with Lovenox and Coumadin until she reached a therapeutic INR. By postoperative day #3, she is orthopedically and medically stable for discharge to home with home service. PHYSICAL EXAMINATION: General: Well-appearing, in no acute distress, resting in bed comfortably after a PT session. Vital Signs: Temperature 97.6, pulse rate 66, respirations 16, blood pressure 113/61, pulse oxygenation 90% on room air with average pulse oxygenation between 92% to 98%. Examination of the left knee shows that the incision is intact with sutures in place. No drainage noted , mild erythema around the incision site, minimal ecchymosis around the incisions, moderate joint effusion, no induration palpable, negative Isaura's sign bilaterally. Posterior tibial pulse is 2+ bilaterally with positive dorsiflexion and plantarflexion with sensation intact to light touch in bilateral lower extremities. DIAGNOSTIC STUDIES/LAB DATA: On the date of discharge, H and H of 9.1 and 27 with an INR of 2.93. Radiographs: Postoperative films of the left knee obtained postoperatively showed anatomically aligned left knee prosthesis. DISCHARGE MEDICATIONS: 1. Atorvastatin 20 mg p.o. q. p.m. 2. Refresh Tears 1 drop both eyes t.i.d. 3. Dulcolax capsules 100 mg p.o. b.i.d. 4. Dristan nasal spray 1 to 2 sprays both nares daily p.r.n. 5. Gabapentin 300 mg p.o. b.i.d. 6. Lopid 600 mg p.o. q.p.m. 7. Synthroid 112 mcg p.o. q.p.m. 8. Oxycodone/acetaminophen 5/325 mg 1 to 2 tablets every 4 to 6 hours as needed for pain. 9. Sertraline 100 mg p.o. q.p.m. 10. Coumadin 2 mg 1 to 2 tablets daily at 5 p.m. per physician's instructions. 11. Nitrofurantoin 100 mg p.o. b.i.d. x5 days. CONDITION ON DISCHARGE: Stable. DISCHARGE INSTRUCTIONS: Ms. Cr is a very pleasant 76-year-old female, postoperative day 3 status post left total knee arthroplasty, which was uncomplicated. She is orthopedically and medically stable for discharge to go home with home services. Her labs and vital signs are stable. She will restart her home medications. She will hold her Coumadin on 03/17/17 and , take 2 mg on 03/19/17 and have an INR drawn 03/20/17. She will have INR draws every Monday and with [facility]. She will remain weightbearing as tolerated in the left lower extremity. She will have home physical therapy twice a week. She will take Percocet as needed for pain control and will continue with nitrofurantoin twice daily for 5 days for questionable UTI while she was inhouse. She will take Colace 3 times a day as needed for constipation. She will follow up with Dr. Leal at her appointment. She was instructed go immediately to the ER should she develop chest pain or shortness of breath. Should she develop fever or increasing pain, redness, tenderness, she is to call the office immediately. LYNNE PAPPAS [id number]/CPS #: [id number] MTDD
== END 2017-03-17 14:40 | disposition home health service (06) | DRG 470 ==
LOC: AA 07:04 → SSU 14:30
PROVIDERS: ADMIT Orthopaedic Surgery Adult Reconstructive Orthopaedic Surgery; ATTEND Orthopaedic Surgery Adult Reconstructive Orthopaedic Surgery
PROC: 0SRD0J9 Replacement of Left Knee Joint with Synthetic Substitute, Cemented, Open Approach (ICD-10-PCS; principal; 2017-03-14 09:00)
DX: M17.12 Unilateral primary osteoarthritis, left knee (principal); I95.9 Hypotension, unspecified; N39.0 Urinary tract infection, site not specified; M41.9 Scoliosis, unspecified; E03.9 Hypothyroidism, unspecified; M15.9 Polyosteoarthritis, unspecified; F41.9 Anxiety disorder, unspecified; E78.5 Hyperlipidemia, unspecified; G89.29 Other chronic pain; M25.762 Osteophyte, left knee; M51.36 Other intervertebral disc degeneration, lumbar region; Z87.442 Personal history of urinary calculi; Z88.5 Allergy status to narcotic agent; Z79.01 Long term (current) use of anticoagulants; Z88.1 Allergy status to other antibiotic agents; Z91.048 Other nonmedicinal substance allergy status; Z82.49 Family history of ischemic heart disease and other diseases of the circulatory system; Z83.3 Family history of diabetes mellitus; Z82.3 Family history of stroke
CPT/HCPCS: 36415; 76000; 80048; 81003; 81015; 85014; 85018; 85610; 87086; 94760; A9270-GY; C1776; J0690; J1100; J1170; J1650; J1885; J2250; J2405; J2704; J2795; J3010

== ENCOUNTER 2019-10-22 06:07 | Observation (INO) ==
[~2019-10-22 06:07] MED LIST changes: -Buffered Lidocaine 0.9% SYRIN* 5 ML/SYR SYRINGE INTRADERM ONE; -Famotidine IV* 10 MG/ML 2 ML (20 mg) IV ONE; +Lactated Ringers 1000 ml BAG 1,000 ML IV SCH
[2019-10-22] MEDS ORDERED: ceFAZolin 2 GM PREMIX in ORs 2 GM/50 ML BAG ONE (06:47)
[2019-10-22] MEDS ORDERED: Buffered Lidocaine 1% SYRIN 1 ml INTRADERM ONE (06:48)
[2019-10-22] MEDS ORDERED: Ropivacaine 0.2% 2 MG/ML VIAL ONE (07:11)
[2019-10-22] MEDS ORDERED: ROPIVACAINE 5 MG/ML 30 ML BTL (0.5%) ONE ×3 (07:12→07:31)
[2019-10-22] MEDS ORDERED: Lidocaine 1% VIAL 10 MG/ML VIAL ONE (07:21)
[2019-10-22] MEDS ORDERED: Rocuronium 50 mg VIAL 10 mg/ml 5 ml VIAL (50 mg) ONE (08:01)
[2019-10-22] MEDS ORDERED: fentaNYL 100 mcg/2 ml 50 MCG/ML VIAL ONE (08:01)
[2019-10-22] MEDS ORDERED: Ondansetron ODT 4 mg TAB 4 MG TAB PO PRN (08:28)
[2019-10-22] MEDS ORDERED: diPHENhydraMINE 25 mg TAB PO PRN (08:28)
[2019-10-22] MEDS ORDERED: Lactulose 30 ml UDC PO PRN (08:28)
[2019-10-22] MEDS ORDERED: diPHENhydraMINE IV 50 MG/ML 1 ml VIAL (BENADRYL) IV PRN (08:28)
[2019-10-22] MEDS ORDERED: Morphine 2 MG/ML SYRINGE IV PRN (08:28)
[2019-10-22] MEDS ORDERED: Magnesium Hydroxide LIQ 30 ML UDC PO PRN (08:28)
[2019-10-22] MEDS ORDERED: Dexamethasone IV 4 MG/ML VIAL 1 ml VIAL ONE (08:33)
[2019-10-22] MEDS ORDERED: Ondansetron 4 mg VIAL 2 MG/ML 2 ml VIAL ONE ×2 (08:33→09:58)
[2019-10-22] MEDS ORDERED: Phenylephrine IV 10 MG/ML 1 ml VIAL ONE (08:33)
[2019-10-22] MEDS ORDERED: Propofol 10 MG/ML 20 ML BTL ONE (08:33)
[2019-10-22] MEDS ORDERED: EPHEDrine (Pressors) 50 MG/ML VIAL ONE ×2 (08:33)
[2019-10-22] MEDS ORDERED: Naloxone 0.4 mg VIAL 0.4 mg/ml 1 ml VIAL IV PRN (08:38)
[2019-10-22] MEDS ORDERED: Acetaminophen IV 1 GM/100ML 100 ML ONE (08:59)
[2019-10-22] MEDS ORDERED: Potassium Citrate TAB (NF) 15 MEQ TABLET.ER PO SCH (09:00)
[2019-10-22] MEDS ORDERED: oxyCODONE/Acetamin 5/325 mg TAB ONE (09:50)
[2019-10-22] MEDS ORDERED: HYDROmorphone 1 MG/1 ML SYRINGE ONE (09:50)
[2019-10-22] MEDS: HYDROmorphone 1 MG/1 ML SYRINGE IV PRN ×3 (09:56→10:16)
[2019-10-22] MEDS: oxyCODONE/Acetamin 5/325 mg TAB PO PRN ×2 (09:57→20:26)
[2019-10-22] MEDS: Ondansetron 4 mg VIAL 2 MG/ML 2 ml VIAL IV PRN ×2 (09:59→18:19)
[2019-10-22] MEDS: Carboxymethylcellulose/Glyceri 10 ML OPHTH.GEL lubricant eye gel BOTH EYES SCH ×3 (11:28→20:27)
[2019-10-22] MEDS: Vitamin THERAPEUTIC TAB PO SCH (11:29)
[2019-10-22] MEDS: Magnesium Hydroxide LIQ 30 ML UDC PO SCH ×2 (11:29→20:27)
[2019-10-22] MEDS: Lactated Ringers 1000 ml BAG 1,000 ML IV SCH ×2 (11:38→23:01)
[2019-10-22] MEDS: ceFAZolin 1 GM ADVAN(*) 1 GM in NS 0.9% 50 ML 50 ML IVPB SCH (16:55)
[2019-10-23] MEDS: oxyCODONE/Acetamin 5/325 mg TAB PO PRN ×2 (00:42→09:13)
[2019-10-23] MEDS: ceFAZolin 1 GM ADVAN(*) 1 GM in NS 0.9% 50 ML 50 ML IVPB SCH ×2 (00:42→10:02)
[2019-10-23 05:55] LABS: Hematocrit 33 % (35-47); Hemoglobin 11.4 g/dL (12.0-16.0); Mean Platelet Volume 8.4 fL (7.4-10.4); Platelet Count 184 10^3/uL (150-450)
[2019-10-23 06:27] LABS: BUN/Creatinine Ratio 16.7 (8-20); Calcium 8.7 mg/dL (8.6-10.3); EGFR African American 55.9 (>60); EGFR Non-African American 46.2 (>60); Potassium 4.1 mmol/L (3.5-5.0)
[2019-10-23] MEDS: Vitamin THERAPEUTIC TAB PO SCH (09:13)
[2019-10-23] MEDS: Magnesium Hydroxide LIQ 30 ML UDC PO SCH ×2 (09:13→09:17)
[2019-10-23] MEDS: Carboxymethylcellulose/Glyceri 10 ML OPHTH.GEL lubricant eye gel BOTH EYES SCH ×2 (09:15→14:05)
[2019-10-23 15:59] VITALS: BP 100/62
== END 2019-10-23 16:30 | disposition home or self-care (01) ==
LOC: OR 06:07 → SSU 06:07
PROVIDERS: ADMIT Orthopaedic Surgery Adult Reconstructive Orthopaedic Surgery; ATTEND Orthopaedic Surgery Adult Reconstructive Orthopaedic Surgery

== ENCOUNTER 2020-03-24 11:20 | Observation (INO) ==
[~2020-03-24 11:20] MED LIST changes: +Buffered Lidocaine 1% SYRIN 1 ml INTRADERM ONE; +Famotidine IV 10 MG/ML 2 ml VIAL (20 mg) IV ONE; +Famotidine IV 10 MG/ML 2 ml VIAL (20 mg) ONE; +Ondansetron 4 mg VIAL 2 MG/ML 2 ml VIAL ONE; +Propofol 10 MG/ML 20 ML BTL ONE; +ROPIVACAINE 5 MG/ML 30 ML BTL (0.5%) ONE; +Sodium Citrate/Citric Acid LIQ 15 ML UDC ONE; +Sodium Citrate/Citric Acid LIQ 15 ML UDC PO ONE; +ceFAZolin 2 GM PREMIX 2 GM/50 ML BAG ONE
[2020-03-24] MEDS ORDERED: ROPIVACAINE 5 MG/ML 30 ML BTL (0.5%) ONE (11:42)
[2020-03-24] MEDS ORDERED: Lidocaine 1% MPF 5 ML VIAL ONE (11:43)
[2020-03-24] MEDS ORDERED: Dexamethasone IV 4 MG/ML VIAL 1 ml VIAL ONE (11:51)
[2020-03-24] MEDS ORDERED: Rocuronium 50 mg VIAL 10 mg/ml 5 ml VIAL (50 mg) ONE (12:09)
[2020-03-24] MEDS ORDERED: fentaNYL 100 mcg/2 ml 50 MCG/ML VIAL ONE (12:09)
[2020-03-24] MEDS ORDERED: Midazolam 5 mg/5 ml VIAL 1 mg/ml 5 ml VIAL (5 mg) ONE (12:15)
[2020-03-24] MEDS ORDERED: HYDROmorphone 1 MG/1 ML SYRINGE ONE (13:42)
[2020-03-24] MEDS ORDERED: Ondansetron 4 mg VIAL 2 MG/ML 2 ml VIAL ONE (13:59)
[2020-03-24] MEDS ORDERED: diPHENhydraMINE 25 mg TAB PO PRN (14:05)
[2020-03-24] MEDS ORDERED: diPHENhydraMINE IV 50 MG/ML 1 ml VIAL (BENADRYL) IV PRN (14:05)
[2020-03-24] MEDS ORDERED: Magnesium Hydroxide LIQ 30 ML UDC PO PRN (14:05)
[2020-03-24] MEDS ORDERED: Ondansetron ODT 4 mg TAB 4 MG TAB PO PRN (14:05)
[2020-03-24] MEDS ORDERED: Morphine 2 MG/ML SYRINGE IV PRN (14:05)
[2020-03-24] MEDS ORDERED: Lactulose 30 ml UDC PO PRN (14:05)
[2020-03-24] MEDS ORDERED: oxyCODONE/Acetamin 5/325 mg TAB PO PRN (14:05)
[2020-03-24] MEDS ORDERED: Ondansetron 4 mg VIAL 2 MG/ML 2 ml VIAL IV PRN ×2 (14:05→15:07)
[2020-03-24] MEDS ORDERED: ceFAZolin 1 GM ADVAN 1 GM in NS 0.9% 50 ML 50 ML IVPB SCH (15:00)
[2020-03-24] MEDS ORDERED: Naloxone 0.4 mg VIAL 0.4 mg/ml 1 ml VIAL IV PRN (15:07)
[2020-03-24] MEDS ORDERED: fentaNYL 100 mcg/2 ml 50 MCG/ML VIAL IV PRN (15:07)
[2020-03-24] MEDS ORDERED: HYDROmorphone 1 MG/1 ML SYRINGE IV PRN (15:07)
[2020-03-24] MEDS ORDERED: oxyCODONE/Acetamin 5/325 mg TAB ONE (16:24)
[2020-03-24] MEDS: oxyCODONE/Acetamin 5/325 mg TAB PO PRN (16:25)
[2020-03-24] MEDS: Lactated Ringers 1000 ml BAG 1,000 ML IV SCH (17:21)
[2020-03-24] MEDS ORDERED: POTASSIUM CITRATE 15 MEQ PO SCH (18:00)
[2020-03-24] MEDS ORDERED: Nicotine GUM 4MG FRUIT FLAVOR PO PRN (18:28)
[2020-03-24] MEDS ORDERED: Dextran 70/Hypromellose Tears Eye Drops 15 ml BTL (for Artificials Tears) BOTH EYES SCH ×2 (21:00→22:04)
[2020-03-24] MEDS ORDERED: Neomycin/Polymy/Dex OPTH.SUSP MAXITROL 0.1% 5 ML RIGHT EYE SCH (21:00)
[2020-03-24] MEDS ORDERED: MINERAL OIL BOTH EYES SCH (21:00)
[2020-03-24] MEDS ORDERED: [UNRECOGNIZED DRUG - OTHER] BOTH EYES SCH (21:00)
[2020-03-24] MEDS: ceFAZolin 1 GM ADVAN 1 GM in NS 0.9% 50 ML 50 ML IVPB SCH (21:47)
[2020-03-24] MEDS: Magnesium Hydroxide LIQ 30 ML UDC PO SCH (21:56)
[2020-03-24] MEDS: [UNRECOGNIZED DRUG - OTHER] BOTH EYES SCH (22:12)
[2020-03-24] MEDS: CARBOXYMETHYLCELLULOSE 0.5% BOTH EYES SCH (22:12)
[2020-03-25] MEDS: oxyCODONE/Acetamin 5/325 mg TAB PO PRN ×2 (03:14→15:04)
[2020-03-25] MEDS: Lactated Ringers 1000 ml BAG 1,000 ML IV SCH (03:17)
[2020-03-25] MEDS: ceFAZolin 1 GM ADVAN 1 GM in NS 0.9% 50 ML 50 ML IVPB SCH ×2 (05:25→13:26)
[2020-03-25 06:16] LABS: Hematocrit 32 % (35-47); Hemoglobin 10.6 g/dL (12.0-16.0); Platelet Count 189 10^3/uL (150-450)
[2020-03-25 06:26] LABS: BUN/Creatinine Ratio 18.1 (8-20); Calcium 8.3 mg/dL (8.6-10.3); EGFR African American 61.5 (>60); EGFR Non-African American 50.8 (>60); Potassium 4.5 mmol/L (3.5-5.0)
[2020-03-25] MEDS: Magnesium Hydroxide LIQ 30 ML UDC PO SCH (08:24)
[2020-03-25] MEDS: [UNRECOGNIZED DRUG - OTHER] BOTH EYES SCH ×2 (08:27→15:06)
[2020-03-25] MEDS: CARBOXYMETHYLCELLULOSE 0.5% BOTH EYES SCH ×2 (08:27→15:06)
[2020-03-25] MEDS ORDERED: Vitamin THERAPEUTIC TAB PO SCH (09:00)
[2020-03-25 16:09] VITALS: BP 102/59
== END 2020-03-25 16:35 | disposition home or self-care (01) ==
LOC: OR 11:20 → INTOOBSV 14:05 → SSU 14:05
PROVIDERS: ADMIT Orthopaedic Surgery Adult Reconstructive Orthopaedic Surgery; ATTEND Orthopaedic Surgery Adult Reconstructive Orthopaedic Surgery